=== PATIENT | male | born 1990 | race Caucasian/White ===

== ENCOUNTER 2016-11-01 18:12 | Emergency (ER) | payer MEDICAID, OTHER ==
[2016-11-01 19:15] VITALS: PULSE 70; RESP 18; TEMP 98; O2SAT 97
[2016-11-01 19:17] VITALS: BP 127/77
[2016-11-01] MEDS: HYDROXYZINE HYDROCHLORIDE 25 MG/ML SOL IM ONE (19:44)
[2016-11-01] MEDS ORDERED: PROPRANOLOL HYDROCHLORIDE 20 MG TAB PO SCH (19:45)
[2016-11-01] MEDS ORDERED: LORAZEPAM 0.5 MG TAB ONE (20:03)
[2016-11-01] MEDS: LORAZEPAM 0.5 MG TAB PO ONE (20:05)
[2016-11-01 20:19] LABS: BILIRUBIN,DIRECT 0.1 mg/dl (0.0-0.2); CALCIUM 9.1 mg/dl (8.5-10.1); POTASSIUM 4.5 mMol/L (3.5-5.1)
== END 2016-11-01 21:06 | disposition home or self-care (01) | DRG 641 ==
LOC: ED 18:12
DX: R63.4 Abnormal weight loss (principal); F41.9 Anxiety disorder, unspecified; M89.8X9 Other specified disorders of bone, unspecified site; R94.6 Abnormal results of thyroid function studies
CPT/HCPCS: 36415; 80053; 80076; 83735; 99282

== ENCOUNTER 2016-11-12 09:39 | Day surgery (SDC) | payer OTHER ==
[~2016-11-12 09:39] MED LIST: LIDOCAINE HCL 1% MPF SOL ONE; PROPOFOL 500 MG/50 ML EMU IV ONE
[2016-11-12 11:50] VITALS: TEMP 97.4
[2016-11-12 13:45] VITALS: BP 107/58; PULSE 52; RESP 20; O2SAT 93
== END 2016-11-12 13:05 | disposition home or self-care (01) | DRG 392 ==
LOC: SURG 09:39
PROVIDERS: ATTEND Internal Medicine Gastroenterology
DX: R13.10 Dysphagia, unspecified (principal); K29.70 Gastritis, unspecified, without bleeding; R63.4 Abnormal weight loss
CPT/HCPCS: J2001; J2704

== ENCOUNTER 2017-02-14 19:22 | Emergency (ER) | payer OTHER ==
[2017-02-14] MEDS ORDERED: PROPARACAINE HCL 0.5% OPHTHALMIC SOL ONE (19:40)
[2017-02-14 21:05] VITALS: BP 107/75; PULSE 84; RESP 16; TEMP 96.4; O2SAT 100
== END 2017-02-14 19:59 | disposition home or self-care (01) | DRG 125 ==
LOC: ED 19:22
DX: S05.01XA Injury of conjunctiva and corneal abrasion without foreign body, right eye, initial encounter (principal)
CPT/HCPCS: 99282

== ENCOUNTER 2017-04-21 18:38 | Emergency (ER) | payer SELFPAY ==
[2017-04-21 19:06] VITALS: BP 99/65; PULSE 97; RESP 16; TEMP 98.2; O2SAT 94
[2017-04-21 19:36] LABS: BASOPHILS % (AUTO) 1 % (0-3); EOSINOPHILS % (AUTO) 1 % (0-9); HEMATOCRIT 40 % (39-53); MEAN CORPUSCULAR VOLUME 88 fL (80-100); MONOCYTES % (AUTO) 8.8 % (0-12); NEUTROPHILS % (AUTO) 66.7 % (37-80)
[2017-04-21 19:40] LABS: ALBUMIN 3.9 gm/dl (3.4-5.0); ALT 20 IU/L (14-63); CALCIUM 9.2 mg/dl (8.5-10.1); GLOM FILT RATE 72 mL/min (>60); POTASSIUM 3.9 mMol/L (3.5-5.1); SODIUM 141 mMol/L (136-145); THYROID STIMULATING HORMONE 0.108 uIU/ml (0.358-3.740)
[2017-04-21 23:14] LABS: APPEARANCE,URINE Clear; BILIRUBIN,URINE 1+ (NEGATIVE); COLOR,URINE Yellow; GLUCOSE, URINE (UA) NEGATIVE (NEGATIVE); KETONES,URINE TRACE (NEGATIVE); LEUKOCYTE ESTERASE ,URINE NEGATIVE (NEGATIVE); NITRATE,URINE NEGATIVE (NEGATIVE); OCCULT BLOOD,URINE NEGATIVE (NEG-TRACE); PH,URINE 5.5; UROBILINOGEN,URINE 0.2 (0.2-1.0 EU)
[2017-04-21 23:28] LABS: ICTOTEST,URINE NEGATIVE (NEGATIVE); RBC,URINE NEGATIVE (0-3AV/HPF); WBC,URINE 0-1 (0-5AV/HPF)
[2017-04-21 23:29] LABS: AMPHETAMINES NEGATIVE (NEGATIVE); METHADONE NEGATIVE (NEGATIVE); OPIATES(OP13) NEGATIVE (NEGATIVE); TRICYCLIC ANTIDEPRESSANTS NEGATIVE (NEGATIVE)
[2017-04-21 23:30] LABS: OXYCODONE(OXY) NEGATIVE (NEGATIVE); PROPOXYPHENE(PPX) NEGATIVE (NEGATIVE)
== END 2017-04-21 23:45 | disposition short-term general hospital (02) | DRG 880 ==
LOC: ED 18:38
DX: R45.851 Suicidal ideations (principal)
CPT/HCPCS: 36415; 80053; 80305; 80307; 81001; 84443; 85025; 99284

== ENCOUNTER 2017-05-06 00:37 | Emergency (ER) | payer MEDICAID ==
[2017-05-06] MEDS ORDERED: KETOROLAC TROMETHAMINE 30 MG/ML SOL IM ONE (00:47)
[2017-05-06] MEDS ORDERED: KETOROLAC TROMETHAMINE 30 MG/ML SOL ONE (00:48)
[2017-05-06 00:58] VITALS: BP 146/106; PULSE 70; RESP 16; TEMP 97.9; O2SAT 100
[2017-05-06] MEDS ORDERED: AMOXIL/CLAVULANATE 400/5 ML PDR PO ONE (00:58)
[2017-05-06] MEDS ORDERED: AUGMENTIN(FRIDGE) 400 MG/5 ML ONE (01:02)
== END 2017-05-06 01:18 | disposition home or self-care (01) | DRG 159 ==
LOC: ED 00:37
DX: K02.9 Dental caries, unspecified (principal)
CPT/HCPCS: 99282; J1885

== ENCOUNTER 2017-05-13 13:14 | Emergency (ER) | payer MEDICAID ==
[2017-05-13 13:37] VITALS: RESP 16
[2017-05-13 16:33] VITALS: TEMP 98.7
[2017-05-13 16:34] VITALS: BP 99/48; PULSE 55; O2SAT 99
== END 2017-05-13 16:20 | disposition home or self-care (01) | DRG 395 ==
LOC: ED 13:14
DX: K64.4 Residual hemorrhoidal skin tags (principal)
CPT/HCPCS: 99282

== ENCOUNTER 2017-08-05 22:46 | Emergency (ER) | payer MEDICAID, OTHER ==
[2017-08-05 23:10] VITALS: RESP 16; TEMP 97.7
[2017-08-05 23:49] VITALS: BP 112/55; PULSE 77; O2SAT 95
== END 2017-08-05 23:45 | disposition home or self-care (01) | DRG 153 ==
LOC: ED 22:46
DX: J06.9 Acute upper respiratory infection, unspecified (principal)
CPT/HCPCS: 87430; 99282

== ENCOUNTER 2017-10-06 15:43 | Emergency (ER) | payer OTHER ==
[2017-10-06 17:13] VITALS: BP 106/70; PULSE 79; RESP 20; TEMP 97; O2SAT 97
== END 2017-10-06 16:55 | disposition home or self-care (01) | DRG 93 ==
LOC: ED 15:43
DX: R20.0 Anesthesia of skin (principal); H93.11 Tinnitus, right ear; R51 Headache; T69.9XXA Effect of reduced temperature, unspecified, initial encounter; J34.89 Other specified disorders of nose and nasal sinuses
CPT/HCPCS: 70450; 99282

== ENCOUNTER 2017-10-06 22:11 | Emergency (ER) | payer OTHER ==
[2017-10-06 23:10] VITALS: TEMP 96.6
[2017-10-06 23:34] VITALS: BP 107/73; PULSE 77; RESP 16; O2SAT 99
== END 2017-10-06 23:35 | disposition home or self-care (01) | DRG 923 ==
LOC: ED 22:11
DX: T69.9XXA Effect of reduced temperature, unspecified, initial encounter (principal); R20.2 Paresthesia of skin
CPT/HCPCS: 70450; 99283

== ENCOUNTER 2018-10-28 16:34 | Emergency (ER) | payer SELFPAY ==
[2018-10-28 16:56] VITALS: TEMP 97.1
[2018-10-28 17:54] VITALS: RESP 16
[2018-10-28 19:22] VITALS: BP 112/60; PULSE 98; O2SAT 94
== END 2018-10-28 19:34 | disposition home or self-care (01) | DRG 201 ==
LOC: ED 16:34
DX: J98.2 Interstitial emphysema (principal); M54.2 Cervicalgia; R40.2362 Coma scale, best motor response, obeys commands, at arrival to emergency department; R40.2142 Coma scale, eyes open, spontaneous, at arrival to emergency department; R40.2252 Coma scale, best verbal response, oriented, at arrival to emergency department; M51.24 Other intervertebral disc displacement, thoracic region; W19.XXXA Unspecified fall, initial encounter
CPT/HCPCS: 71260; 72125; 72128; 99284; Q9967

== ENCOUNTER 2018-11-12 11:18 | Emergency (ER) | payer SELFPAY ==
[2018-11-12 11:39] VITALS: TEMP 96.6
[2018-11-12 20:41] VITALS: BP 92/51; PULSE 63; RESP 14; O2SAT 98
== END 2018-11-12 13:20 | disposition home or self-care (01) | DRG 153 ==
LOC: ED 11:18
DX: J01.90 Acute sinusitis, unspecified (principal)
CPT/HCPCS: 99282

== ENCOUNTER 2019-04-08 16:57 | Emergency (ER) | payer OTHER | END 2019-04-08 18:02 | disposition home or self-care (01) | LOC: ED 16:57 ==